=== PATIENT | female | born 1990 | race Caucasian/White ===

== ENCOUNTER 2016-04-29 07:52 | Emergency (ER) | payer OTHER ==
[~2016-04-29] VITALS: Ht 165.1 cm; Wt 99.8 kg
[~2016-04-29 07:52] MED LIST: MAGN296S PO; POLY119P4 PO; PROM25TA10 PO
--- NOTE | 2016-04-29 09:03 | PHYS DOC ---
Past Medical History Past Medical History: Asthma, Other Additional Past Medical Histor: OCD, AUTISM, Past Surgical History: Alcohol Use: Occasionally Drug Use: None Adult General Chief Complaint Chief Complaint: ABDOMINAL PAIN HPI HPI Patient is a 25 year old female with history of asthma who presents today with nausea vomiting that has been occurring intermittently for the last 6 weeks. Patient states her last menstrual cycle was the beginning of March which is a month and a half ago. She states she did a test at home which was positive. Patient denies any fever. Denies abdominal pain of vaginal discharge or bleeding. Review of Systems Review of Systems Constitutional: Denies fever or chills [] Eyes: Denies change in visual acuity, redness, or eye pain [] HENT: Denies nasal congestion or sore throat [] Respiratory: Denies cough or shortness of breath [] Cardiovascular: No additional information not addressed in HPI [] GI: Nausea and vomiting : Denies dysuria or hematuria [] Musculoskeletal: Denies back pain or joint pain [] Integument: Denies rash or skin lesions [] Neurologic: Denies headache, focal weakness or sensory changes [] Endocrine: Denies polyuria or polydipsia [] Allergies Allergies Allergies Coded Allergies Type Severity Reaction Last Updated Verified No Known Drug Allergies 03/20/16 No Physical Exam Physical Exam Constitutional: Well developed, well nourished, no acute distress, non-toxic appearance. [] HENT: Normocephalic, atraumatic, bilateral external ears normal, oropharynx moist, no oral exudates, nose normal. [] Eyes: PERRLA, EOMI, conjunctiva normal, no discharge. [] Neck: Normal range of motion, no tenderness, supple, no stridor. [] Cardiovascular:Heart rate regular rhythm, no murmur [] Lungs & Thorax: Bilateral breath sounds clear to auscultation [] Abdomen: Bowel sounds normal, soft, no tenderness, no masses, no pulsatile masses. [] Skin: Warm, dry, no erythema, no rash. [] Back: No tenderness, no CVA tenderness. [] Extremities: No tenderness, no cyanosis, no clubbing, ROM intact, no edema. [] Neurologic: Alert and oriented X 3, normal motor function, normal sensory function, no focal deficits noted. [] Psychologic: Affect normal, judgement normal, mood normal. [] Current Patient Data Vital Signs Vital Signs Date Time Temp Pulse Resp B/P Pulse Ox O2 Delivery O2 Flow Rate FiO2 04/29/16 09:10 97.9 74 20 126/73 96 Room Air 97.9 Lab Values Laboratory Tests Test 04/29/16 09:00 04/29/16 09:05 Urine Collection Type Unknown Urine Color Latia Urine Clarity Turbid Urine pH 6.0 Urine Specific [place] >=1.030 Urine Protein Negativemg/dL (NEG-TRACE) Urine Glucose (UA) Negativemg/dL (NEG) Urine Ketones (Stick) Tracemg/dL (NEG) Urine Blood Trace (NEG) Urine Nitrite Negative (NEG) Urine Bilirubin (NEG) Urine Urobilinogen Dipstick 1.0mg/dL (0.2 mg/dL) Urine Leukocyte Esterase Large (NEG) Urine RBC Occ/HPF (0-2) Urine WBC 5-10/HPF (0-4) Urine Squamous Epithelial Cells Few/LPF Urine Amorphous Sediment Present/HPF Urine Bacteria Many/HPF (0-FEW) Urine Mucus Slight/LPF POC Urine HCG, Qualitative Hcg positive (Negative) EKG EKG [] Radiology/Procedures Radiology/Procedures [] Course & Med Decision Making Course & Med Decision Making Pertinent Labs and Imaging studies reviewed. (See chart for details) Patient is in the ED concerned she could be . She had a positive test at home. Her last menstrual cycle was the beginning of March 2016. Urine hCG is positive in the ED. Urine was also positive for UTI. Patient was discharged with Keflex. She was provided an OB for follow-up. She was provided return precautions and discharged in stable condition. Dragon Disclaimer Dragon Disclaimer This electronic medical record was generated, in whole or in part, using a voice recognition dictation system. Departure Departure Impression: Primary Impression: Urinary tract infection during Additional Impression: Disposition: 01 HOME, SELF-CARE Condition: STABLE Referrals: NO PCP (PCP) ROSALIA BOBO APRN See the provided doctor in a week Patient Instructions: ABCs of , - Urinary Tract Infection Additional Instructions: You . Your test was positive in the emergency room. He also have a bladder infection. Complete your antibiotics. Follow-up with the provided [facility] as soon as you can. Come back to the emergency room for any concerning symptoms especially uncontrolled nausea vomiting, vaginal bleeding, abdominal pain. Scripts Cephalexin 500 Mg Tablet1 Tab PO QID #14 TAB Prov:DEQUAN ALMARAZ APRN 04/29/16 Promethazine Hcl 25 Mg Tablet1 Tab PO PRN Q6HRS #20 TAB Prov:DEQUAN ALMARAZ APRN 04/29/16 Problem Qualifiers Primary Impression: Urinary tract infection during Trimester: first trimester Qualified Code: O23.41 - Unspecified infection of urinary tract in , first trimester Additional Impression: Weeks of gestation: less than 8 weeks Qualified Code: Z3A.01 - Less than 8 weeks gestation of DEQUAN ALMARAZ APRN Apr 29, 2016 09:03
[2016-04-29 09:10] VITALS: BP 126/73
[2016-04-29 10:02] LABS: GLUCOSE,URINE NEGATIVE (NEG); NITRITE,URINE NEGATIVE (NEG); PROTEIN,URINE NEGATIVE (NEG-TRACE)
[2016-04-29 10:10] LABS: BACTERIA,URINE MANY /HPF (0-FEW); RBC,URINE OCC /HPF (0-2); SQUAMOUS EPITHELIAL CELL,UR FEW /LPF
[2016-04-29] MEDS ORDERED: CEPH500T PO (10:28)
[2016-04-29] MEDS ORDERED: PROM25TA10 PO (10:28)
== END 2016-04-29 10:39 | disposition home or self-care (01) ==
LOC: ER 07:52
DX: Z33.1 Pregnant state, incidental (principal); O23.40 Unspecified infection of urinary tract in pregnancy, unspecified trimester; R11.2 Nausea with vomiting, unspecified; J45.909 Unspecified asthma, uncomplicated; F84.0 Autistic disorder; F42.9 Obsessive-compulsive disorder, unspecified; Z98.890 Other specified postprocedural states
CPT/HCPCS: 81001; 81025; 99283

== ENCOUNTER → 2016-05-22 | Outpatient (CLI) | payer OTHER ==
[2016-04-29 09:10] VITALS: BP 126/73
[~2016-05-22] MED LIST changes: +CEPH500T PO
--- NOTE | 2016-05-22 13:22 | KCIC ---
PROCEDURE First trimester obstetrical ultrasound HISTORY , unknown dates COMPARISON None FINDINGS Multiple transabdominal sonographic images of the pelvis are submitted. Uterus measured 9.8 x 6.1 x 7.4 centimeters. There is a single intrauterine gestational sac. Gestational sac morphology is within normal limits. There is demonstrable cardiac activity 169 beats per minute. There is identifiable pole. [place]-rump length measurement of 3.57 centimeters corresponds with 10 weeks 3 days. Adjusted ultrasound age is 10 weeks 3 days with estimated delivery date of 12/15/2016. LMP date is not known. Placenta and anatomy are not well visualized at this age of . Amniotic fluid volume is considered within normal limits for age. Right maternal ovary measured 2.8 x 1.6 x 2.7 centimeters with normal low resistance vascularity. Left ovary measured 2.1 x 2.2 x 3 centimeters with normal low resistance vascularity. No free fluid is demonstrated. IMPRESSION 1. There is a single viable intrauterine , adjusted ultrasound age of 10 weeks 3 days with estimated delivery date of 12/15/2016. Electronically signed by: Benja Gomez MD (May 22, 2016 13:20:51)
== END | disposition home or self-care (01) ==
LOC: KCIC US 12:23
PROVIDERS: ATTEND Nurse Practitioner Women's Health
DX: Z32.01 Encounter for pregnancy test, result positive (principal)
CPT/HCPCS: 76801

== ENCOUNTER 2017-07-04 10:49 | Emergency (ER) | payer OTHER ==
[2017-07-04 11:37] LABS: ADD MAN DIFF? NO
[2017-07-04 11:42] LABS: BASO # 0.1 x10^3/uL (0.0-0.2); BASO % 1 % (0-3); EOS # 0.1 x10^3/uL (0.0-0.7); EOS % 1 % (0-3); HEMATOCRIT 41.4 % (36.0-47.0); HEMOGLOBIN 14.1 g/dL (12.0-15.5); LYMPH # 2.8 x10^3/uL (1.0-4.8); LYMPH % 23 % (24-48); MEAN CORPUSCULAR HEMOGLOBIN 32 pg (25-35); MEAN CORPUSCULAR HGB CONC 34 g/dL (31-37); MEAN CORPUSCULAR VOLUME 93 fL (79-100); MONO # 0.7 x10^3/uL (0.0-1.1); MONO % 6 % (0-9); NEUT # 8.8 x10^3uL (1.8-7.7); NEUT % 70 % (31-73); PLATELET COUNT 340 x10^3/uL (140-400); RED BLOOD COUNT 4.47 x10^6/uL (3.50-5.40); RED CELL DISTRIBUTION WIDTH 15.1 % (11.5-14.5); WHITE BLOOD COUNT 12.5 x10^3/uL (4.0-11.0)
[2017-07-04 11:48] LABS: ANION GAP 11 (6-14); BLOOD UREA NITROGEN 6 mg/dL (7-20); CALCIUM 8.9 mg/dL (8.5-10.1); CARBON DIOXIDE 23 mmol/L (21-32); CHLORIDE 104 mmol/L (98-107); CREATININE 0.7 mg/dL (0.6-1.0); GFR 101.1; GLUCOSE 105 mg/dL (70-99); POTASSIUM 3.9 mmol/L (3.5-5.1); SODIUM 138 mmol/L (136-145)
[2017-07-04 11:54] LABS: ALBUMIN 3.6 g/dL (3.4-5.0); ALK PHOS 116 U/L (46-116); ALT (SGPT) 22 U/L (14-59); AST (SGOT) 13 U/L (15-37); DIRECT BILIRUBIN 0.1 mg/dL (0.0-0.2); LIPASE 59 U/L (73-393); TOTAL BILIRUBIN 0.7 mg/dL (0.2-1.0); TOTAL PROTEIN 7.8 g/dL (6.4-8.2)
[2017-07-04 12:26] LABS: BILIRUBIN,URINE NEGATIVE (NEG); CLARITY,URINE CLEAR; COLOR,URINE AMBER; GLUCOSE,URINE NEGATIVE (NEG); NITRITE,URINE NEGATIVE (NEG); PH,URINE 6.5; PROTEIN,URINE 30 mg/dL (NEG-TRACE)
[2017-07-04 12:47] LABS: BACTERIA,URINE FEW /HPF (0-FEW); SQUAMOUS EPITHELIAL CELL,UR MANY /LPF
== END 2017-07-04 13:19 | disposition home or self-care (01) ==
LOC: ER 10:49
DX: O20.9 Hemorrhage in early pregnancy, unspecified (principal); J45.909 Unspecified asthma, uncomplicated; I10 Essential (primary) hypertension; Z3A.08 8 weeks gestation of pregnancy
CPT/HCPCS: 36415; 76805; 76817; 80048; 80076; 81001; 83690; 84702; 85025; 86901; 87086; 99285

== ENCOUNTER 2019-05-19 23:17 | Emergency (ER) | payer OTHER ==
[~2019-05-19] VITALS: Ht 165.1 cm; Wt 99.0 kg
[~2019-05-19 23:17] MED LIST changes: -MAGN296S PO; +MAGN296S68 PO
--- NOTE | 2019-05-20 00:13 | PHYS DOC ---
Past Medical History Past Medical History: Asthma, Hypertension, Other Additional Past Medical Histor: OCD, AUTISM (TOMMIE RAMIRES APRN) Past Surgical History: (TOMMIE RAMIRES APRN) Smoking Status: Current Every Day Smoker Alcohol Use: Occasionally Drug Use: None (TOMMIE RAMIRES APRN) Attending Signature I have participated in the care of this patient and I have reviewed and agree with all pertinent clinical information above including history, exam, and recommendations. (KENNY PORTILLO MD) Adult General Chief Complaint Chief Complaint: SHORTNESS OF BREATH [facility] HPI Patient is a 28 year old female who presents with cough, sore throat, body aches, fever, headache, shortness of breath is been ongoing since yesterday. Patient does have a history of asthma. Denies any other symptoms. It is unknown how high her fevers been she is not checked at home. Complete ROS were reviewed and found to be within normal limits, except as documented in the HPI (TOMMIE RAMIRES APRN) Review of Systems Review of Systems Constitutional: Reports fever or chills [] Eyes: Denies change in visual acuity, redness, or eye pain [] HENT: Reports sore throat [] Respiratory: Reports cough or shortness of breath [] Cardiovascular: No additional information not addressed in HPI [] GI: Denies abdominal pain, nausea, vomiting, bloody stools or diarrhea [] : Denies dysuria or hematuria [] Musculoskeletal: Denies back pain or joint pain [] Integument: Denies rash or skin lesions [] Neurologic: Reports headache, denies focal weakness or sensory changes [] Endocrine: Denies polyuria or polydipsia [] Complete systems were reviewed and found to be within normal limits, except as documented in this note. (TOMMIE RAMIRES APRN) Current Medications Current Medications Current Medications Medications (Trade) Dose Ordered Sig/Jodi Start Time Stop Time Status Last Admin Dose Admin Albuterol/ Ipratropium (Duoneb) 3 ml 1X ONCE 05/20/19 00:30 05/20/19 00:31 DC Dexamethasone (Decadron) 10 mg 1X ONCE 05/20/19 00:30 05/20/19 00:31 DC 05/20/19 01:23 10 MG (KENNY PORTILLO MD) Allergies Allergies Allergies Coded Allergies Type Severity Reaction Last Updated Verified No Known Drug Allergies 03/20/16 No (KENNY PORTILLO MD) Physical Exam Physical Exam Constitutional: Well developed, well nourished, no acute distress, non-toxic appearance. [] HENT: Normocephalic, atraumatic, bilateral external ears normal, oropharynx moist, no oral exudates, nose normal. [] Eyes: PERRLA, EOMI, conjunctiva normal, no discharge. [] Neck: Normal range of motion, no tenderness, supple, no stridor. [] Cardiovascular:Heart rate regular rhythm, no murmur [] Lungs & Thorax: Bilateral breath sounds have expiratory wheezing. Abdomen: Bowel sounds normal, soft, no tenderness, no masses, no pulsatile masses. [] Neurologic: Alert and oriented X 3, normal motor function, normal sensory funct ion, no focal deficits noted. [] Psychologic: Affect normal, judgement normal, mood normal. [] (TOMMIE RAMIRES APRN) Current Patient Data Vital Signs Vital Signs Date Time Temp Pulse Resp B/P (MAP) Pulse Ox O2 Delivery O2 Flow Rate FiO2 05/20/19 01:30 99.1 100 22 164/97 (119) 95 Room Air 99.1 (KENNY PORTILLO MD) Lab Values Laboratory Tests Test 05/20/19 00:05 Influenza Type A Antigen Negative (NEGATIVE) Influenza Type B Antigen Negative (NEGATIVE) (KENNY PORTILLO MD) Lab Values Laboratory Tests Test 05/20/19 00:05 Influenza Type A Antigen Negative (NEGATIVE) Influenza Type B Antigen Negative (NEGATIVE) (TOMMIE RAMIRES APRN) EKG EKG [] (TOMMIE RAMIRES APRN) Radiology/Procedures Radiology/Procedures [] (TOMMIE RAMIRES APRN) Course & Med Decision Making Course & Med Decision Making Pertinent Labs and Imaging studies reviewed. (See chart for details) We will get flu test, chest x-ray, strep test, and give breathing treatment. Flu, strep, and chest x-ray are unremarkable. Patient is feeling better after treatment. We will put the patient on a Medrol Dosepak to help with breathing at home. I cannot rule out coronavirus will have the patient self quarantine at home. (TOMMIE RAMIRES APRN) Dragon Disclaimer Dragon Disclaimer This electronic medical record was generated, in whole or in part, using a voice recognition dictation system. (TOMMIE RAMIRES APRN) Departure Departure Impression: Primary Impression: Asthma exacerbation Additional Impression: Acute viral syndrome Disposition: 01 HOME, SELF-CARE Condition: STABLE Referrals: NO PCP (PCP) Patient Instructions: Asthma Attacks, Prevention, Asthma, Adult Additional Instructions: Thank you for visiting [facility]. We appreciate you trusting us with your care. If any additional problems come up don't hesitate to return to visit us. Please follow up with your primary care provider so they can plan additional care if needed and know about the problem that you had. If symptoms worsen come back to the Emergency Department. Any concerning symptoms that start such as chest pain, shortness of air, weakness or numbness on one side of the body, running high fevers or any other concerning symptoms return to the ER. You have a viral syndrome which may include symptoms like muscle aches, fevers, chills, runny nose, cough, sneezing, sore throat, vomiting, or diarrhea. One of the potential viruses that you may have is SARS-CoV-2, the virus that causes COVID-19, also known as the Coronavirus. You are just as likely to have a different viral infection such as the common cold, flu, etc. Most patients with the Coronavirus have mild symptoms and recover on their own. Resting, staying hydrated, and sleep from known cases can be helpful. As of todays visit, you are well enough to go home and treat your symptoms with oral fluids and over the counter medications. Coronavirus testing is not performed on most people with mild symptoms who are being discharged from the emergency department. If Coronavirus testing was performed the results will not be available for possibly up to 2-3 days. If your result is positive you will be contacted. Please follow the following precautions at home: 1) Stay home except to get medical care. 2) As advised by the CDC we recommend you stay in your home and minimize contact with other people. We do not want you to spread the infection. 3) Those who are older or have significant medical issues may have more severe symptoms from this infection. We recommend self-isolation,FOR AT LEAST 7 DAYS after your 1st day of symptoms. AFTER you feel better please wait AT LEAST ANOTHER WEEK before returning to regular activities and being around other people! 4) IF you become sicker and have difficulty breathing, chest pain, unable to eat/drink, severe vomiting, diarrhea, or weakness you may need to return to the Emergency Department. 5) You should restrict activities outside your home, except for getting medical care. DO NOT go to work, school, or public areas. Avoid using public transportation, ride sharing, or taxis. 6) Separate yourself from other people in your home. You should use a separate bathroom if possible. 7) Avoid sharing personal household items such as dishes, cups, eating utensils, towels, etc. 8) Clean all high touch surfaces every day (door knobs, counter tops, etc). Use a household cleaning spray or wipe per label instructions. 9) Clean your hands often. Wash your hands with soap and water for at least 20 seconds. 10) Cover your mouth and nose with a tissue when you cough or sneeze. 11) Throw used tissues in a trash can and immediately wash your hands. For additional resources please visit the CDC website or the [facility] ([phone]). Scripts Albuterol Sulfate (PROAIR HFA INHALER) 8.5 Gm Hfa.aer.ad 2 PUFF IH PRN Q4-6HRS PRN for wheezing for 21 Days, #1 INHALER 0 Refills Prov: TOMMIE RAMIRES APRN 05/20/19 Methylprednisolone (MEDROL) 4 Mg Tab.ds.pk 1 PKG PO UD, #1 PKG Prov: TOMMIE RAMIRES APRN 05/20/19 Problem Qualifiers Primary Impression: Asthma exacerbation Asthma severity: mild Asthma persistence: unspecified Qualified Codes: J45.901 - Unspecified asthma with (acute) exacerbation TOMMIE RAMIRES APRN May 20, 2019 00:13 KENNY PORTILLO MD May 20, 2019 03:11
[2019-05-20] MEDS ORDERED: DEXAMETHASONE 4 MG TABLET PO ONE (00:30)
[2019-05-20] MEDS ORDERED: IPRATRPIUM/ALBUTEROL 0.5/2.5MG 3 ML NEBU. NEB ONE (00:30)
[2019-05-20 00:38] LABS: INFLUENZA A PATIENT NEGATIVE (NEGATIVE); INFLUENZA B PATIENT NEGATIVE (NEGATIVE)
--- NOTE | 2019-05-20 00:52 | RAD ---
AP chest. HISTORY: Cough and fever AP view was taken of the chest. Lungs are clear. Heart is normal in size. There is no pleural effusion. IMPRESSION: 1. No acute chest disease. Electronically signed by: Christopher Pelayo MD (05/20/2019 12:49 AM) [id number]
[2019-05-20] MEDS ORDERED: METH4TAB2 PO (01:16)
[2019-05-20] MEDS ORDERED: ALBU2.5V8 IH (01:22)
[2019-05-20 01:30] VITALS: BP 164/97
== END 2019-05-20 01:49 | disposition home or self-care (01) ==
LOC: ER 23:17
DX: J45.901 Unspecified asthma with (acute) exacerbation (principal); B34.9 Viral infection, unspecified; R05 Cough; R50.9 Fever, unspecified; R51 Headache; R06.02 Shortness of breath; I10 Essential (primary) hypertension; F17.200 Nicotine dependence, unspecified, uncomplicated; Z98.890 Other specified postprocedural states
CPT/HCPCS: 71045; 87070; 87804; 87880; 94640; 99285; J8540

== ENCOUNTER 2019-11-28 08:02 | Emergency (ER) | payer OTHER ==
[~2019-11-28] VITALS: Ht 165.1 cm; Wt 105.8 kg
[~2019-11-28 08:02] MED LIST changes: +ALBU2.5V8 IH; +METH4TAB2 PO
--- NOTE | 2019-11-28 08:43 | PHYS DOC ---
Past Medical History Past Medical History: Asthma, Hypertension, Other Additional Past Medical Histor: OCD, AUTISM Past Surgical History: , Tubal ligation Smoking Status: Current Every Day Smoker Additional Information: /2 ppd Alcohol Use: Occasionally Drug Use: None General Adult EDM: Chief Complaint: ABSCESS HPI: HPI: Patient is a 29 year old female who presented to ER today for evaluation of painful skin lesion on the right armpit area for 3 days. Patient denies any cough or fever. Patient also says she has some redness below left breast area. Review of Systems: Review of Systems: Constitutional: Denies fever or chills. [] Eyes: Denies change in visual acuity. [] HENT: Denies nasal congestion or sore throat. [] Respiratory: Denies cough or shortness of breath. [] Cardiovascular: Denies chest pain or edema. [] GI: Denies abdominal pain, nausea, vomiting, bloody stools or diarrhea. [] : Denies dysuria. [] Musculoskeletal: Denies back pain or joint pain. [] Integument: positive for skin abscess, redness. Neurologic: Denies headache, focal weakness or sensory changes. [] Endocrine: Denies polyuria or polydipsia. [] Lymphatic: Denies swollen glands. [] Psychiatric: Denies depression or anxiety. [] Heart Score: Risk Factors: Risk Factors: DM, Current or recent (<one month) smoker, HTN, HLP, family history of CAD, obesity. Risk Scores: Score 0 - 3: 2.5% MACE over next 6 weeks - Discharge Home Score 4 - 6: 20.3% MACE over next 6 weeks - Admit for Clinical Observation Score 7 - 10: 72.7% MACE over next 6 weeks - Early Invasive Strategies Allergies: Allergies: Allergies Coded Allergies Type Severity Reaction Last Updated Verified No Known Drug Allergies 11/28/19 No Physical Exam: PE: Constitutional: Well developed, well nourished, no acute distress, non-toxic ap pearance. [] HENT: Normocephalic, atraumatic, bilateral external ears normal, oropharynx moist, no oral exudates, nose normal. [] Eyes: PERRLA, EOMI, conjunctiva normal, no discharge. [] Neck: Normal range of motion, no tenderness, supple, no stridor. [] Cardiovascular:Heart rate regular rhythm, no murmur [] Lungs & Thorax: Bilateral breath sounds clear to auscultation [] Abdomen: Bowel sounds normal, soft, no tenderness, no masses, no pulsatile masses. [] Skin: Warm, dry, there is tender and erythema area on right armpit area, there is small open wound with clear drainage. There is erythema underneath left b reast area, no induration. Back: No tenderness, no CVA tenderness. [] Extremities: No tenderness, no cyanosis, no clubbing, ROM intact, no edema. [] Neurologic: Alert and oriented X 3, normal motor function, normal sensory function, no focal deficits noted. [] Psychologic: Affect normal, judgement normal, mood normal. [] Current Patient Data: Vital Signs: Vital Signs Date Time Temp Pulse Resp B/P (MAP) Pulse Ox O2 Delivery O2 Flow Rate FiO2 11/28/19 08:10 98.2 90 18 151/89 (109) 97 Room Air 98.2 EKG: EKG: [] Radiology/Procedures: Radiology/Procedures: [] Course & Med Decision Making: Course & Med Decision Making Pertinent Labs and Imaging studies reviewed. (See chart for details) Patient is a 29-year-old female with abscess in right armpit area, Will discharge her home with KEFLEX AND BACTRIM DS. Arturo Disclaimer: Arturo Disclaimer: This electronic medical record was generated, in whole or in part, using a voice recognition dictation system. Departure Departure Impression: Primary Impression: Abscess Disposition: 01 HOME, SELF-CARE Condition: STABLE Referrals: NO PCP (PCP) PLEASE FOLLOW UP WITH YOUR DOCTOR IN 2 DAYS FOR WOUND RECHECKED. Patient Instructions: Abscess Additional Instructions: Thank you for visiting our Emergency Department. We appreciate you trusting us with your care. If any additional problems come up don't hesitate to return to visit us. Please follow up with your primary care provider so they can plan additional care if needed and know about the problem that you had. If symptoms worsen come back to the Emergency Department. Any concerning symptoms that start such as chest pain, shortness of air, weakness or numbness on one side of the body, running high fevers or any other concerning symptoms return to the ER. Scripts Sulfamethoxazole/Trimethoprim (BACTRIM DS TABLET) 1 Each Tablet 1 TAB PO BID for 10 Days, #20 TAB 0 Refills Prov: MAY,PETER T DO 11/28/19 Cephalexin (KEFLEX) 500 Mg Capsule 1 CAP PO QID for 10 Days, #40 CAP 0 Refills Prov: SILVER MAY DO 11/28/19 Justicifation of Admission Dx: Justifications for Admission: Justification of Admission Dx: N/A SILVER MAY DO Nov 28, 2019 08:43
[2019-11-28] MEDS ORDERED: SMZ/TMP 800/160MG TABLET. PO ONE (08:45)
[2019-11-28] MEDS ORDERED: CEPHALEXIN 250 MG CAPSULE. PO ONE (08:45)
[2019-11-28] MEDS ORDERED: SULF1TAB24 PO (08:51)
[2019-11-28] MEDS ORDERED: CEPH-264 PO (08:51)
== END 2019-11-28 09:18 | disposition home or self-care (01) ==
LOC: ER 08:02
DX: L02.413 Cutaneous abscess of right upper limb (principal); J45.909 Unspecified asthma, uncomplicated; I10 Essential (primary) hypertension; F42.9 Obsessive-compulsive disorder, unspecified; F84.0 Autistic disorder; F17.200 Nicotine dependence, unspecified, uncomplicated
CPT/HCPCS: 99283